=== PATIENT | male | born 1950 | race Two or more races ===

== ENCOUNTER 2021-10-17 16:48 | Inpatient (IN) | payer OTHER ==
[~2021-10-17] VITALS: Ht 188 cm; Wt 116.5 kg
[2021-10-17] MEDS ORDERED: ACETAMINOPHEN 325 MG TAB PO ONE (17:15)
[2021-10-17 19:21] LABS: Mean Corpuscular Volume 95.6 fL (80.0-100.0)
[2021-10-17 19:23] LABS: Hematocrit 45.7 % (41.0-53.0); Hemoglobin 14.8 g/dL (13.5-17.5); Mean Corpuscular Hgb Conc. 32.4 g/dL (32.0-36.0); Red Blood Cells 4.77 10^6/uL (4.5-5.90); Red Cell Distribution Width 15.6 % (11.8-14.3); White Blood Cell 2.8 10^3/uL (4.4-10.8)
[2021-10-17 19:28] LABS: Basophils % (manual) 0 (0.0-2.0); Blast Cells 0; Eosinophils % (manual) 0 (0-7); Metamyelocytes % 0; Myelocytes % 0; Promyelocytes % 0; Reactive Lymphocytes 0
[2021-10-17 19:29] LABS: Alanine Aminotransferase 40 U/L (16-61); Anion Gap 9 (5-15); Blood Alcohol < 3.0 mg/dL (0-5); Blood Urea Nitrogen 49 mg/dL (7-18); Calcium 8.6 mg/dL (8.5-10.1); Carbon Dioxide 28 mmol/L (21-32); Chloride 100 mmol/L (98-107); Glucose 81 mg/dL (74-106); Potassium 4.8 mmol/L (3.5-5.1); Sodium 137 mmol/L (136-145)
[2021-10-17 19:35] LABS: Alkaline Phosphatase 59 U/L (45-117); Aspartate Aminotransferase 54 U/L (15-37); Bilirubin, Total 0.9 mg/dL (0.2-1.0); GFR African American 42 mL/min; GFR Non-African American 34 mL/min
[2021-10-17 19:56] LABS: Band Neutrophils % (manual) 21; Lymphocytes % (manual) 13 (10.0-50.0); Monocytes % (manual) 5 (0-12)
[2021-10-17] MEDS ORDERED: SODIUM CHLORIDE 0.9% 500 ML IV ONE (20:00)
[2021-10-17] MEDS ORDERED: cefTRIAXone 1GM/50ML D5W 50 ML IV ONE (20:00)
[2021-10-17] MEDS ORDERED: VANCOMYCIN 1GM/250ML 250 ML IV ONE ×2 (20:30→20:45)
[2021-10-17 20:44] LABS: Urine Bacteria NONE SEEN /hpf (None Seen); Urine Blood 2+ /uL (Negative); Urine Hyaline Cast FEW /lpf (0 - 2); Urine Mucus FEW (None Seen); Urine Specific Gravity 1.019 (1.001-1.035); Urine WBC 1 /hpf (0 - 3)
[2021-10-18] MEDS ORDERED: NITROGLYCERIN 0.4 MG SL TAB SL PRN (06:15)
[2021-10-18] MEDS ORDERED: SODIUM CHLORIDE 0.9% 1,000 ML IV SCH (06:15)
[2021-10-18] MEDS ORDERED: SODIUM CHLORIDE 0.9% 500 ML IV ONE (06:15)
[2021-10-18] MEDS ORDERED: ACETAMINOPHEN 500 MG TAB PO PRN (06:15)
[2021-10-18] MEDS ORDERED: MORPHINE SULFATE INJECTION 2 MG/ML SYRG IV PRN (06:15)
[2021-10-18] MEDS ORDERED: ONDANSETRON HCL 4 MG/2 ML VIAL IV PRN ×2 (06:15)
[2021-10-18] MEDS ORDERED: TEMAZEPAM 15 MG CAP PO PRN (06:15)
[2021-10-18] MEDS ORDERED: ENOXAPARIN SOD 40 MG/0.4 ML SYRINGE SC SCH (10:00)
[2021-10-18] MEDS: ZINC SULFATE 220mg CAP or TAB PO SCH (10:18)
[2021-10-18] MEDS: PANTOPRAZOLE 40 MG TAB PO SCH (10:18)
[2021-10-18] MEDS: CHOLECALCIFEROL (VITD3) 2,000 UNIT CAP/TAB PO SCH (10:18)
[2021-10-18] MEDS: DexAMETHasone SOD PHOS 10MG/1ML VIAL INJ IV SCH (10:18)
[2021-10-18] MEDS: ASCORBIC ACID 1,000 MG TAB PO SCH (10:18)
[2021-10-18] MEDS: AZITHROMYCIN 500MG/ 250ML 250 ML IV SCH (10:19)
[2021-10-18] MEDS ORDERED: DILT60TA PO (14:21)
[2021-10-18] MEDS ORDERED: GABA-339 PO (14:21)
[2021-10-18] MEDS ORDERED: METH4TAB7 PO (14:21)
[2021-10-18] MEDS ORDERED: FURO40TA4 PO (14:21)
[2021-10-18] MEDS ORDERED: SITA50TA PO (14:21)
[2021-10-18] MEDS ORDERED: WARF2.5T39 PO (14:21)
[2021-10-18] MEDS ORDERED: GLIP10TA9 PO (14:21)
[2021-10-18] MEDS ORDERED: METO-158 PO (14:21)
[2021-10-18] MEDS ORDERED: METO5TAB5 PO (14:21)
[2021-10-18] MEDS ORDERED: SIMV-13 PO (14:21)
[2021-10-18 14:26] VITALS: BP 111/76
[2021-10-18 15:42] LABS: Magnesium 2.3 mg/dL (1.6-2.6)
[2021-10-18 16:21] LABS: INR 1.83 (0.9-1.15); Partial Thromboplastin Time 52.4 sec (23.6-33.0)
[2021-10-18 16:22] LABS: CRP High Sensitivity 12.2 mg/dL (< 0.3)
[2021-10-18] MEDS ORDERED: WARFARIN SODIUM 5 MG TAB PO ONE (17:00)
[2021-10-18 17:15] VITALS: BP 90/48
[2021-10-18] MEDS: glipiZIDE 5 MG TAB PO SCH (18:20)
[2021-10-18 20:00] VITALS: BP 100/53
[2021-10-18 22:00] VITALS: BP 100/53
[2021-10-18] MEDS: ALBUTEROL SULF HFA 90MCG INH 200DOSE IN PRN (22:32)
[2021-10-18] MEDS: dilTIAZem HCL 60 MG TAB PO SCH (22:52)
[2021-10-18] MEDS: METOPROLOL TARTRATE 50 MG TAB PO SCH (22:53)
[2021-10-19] MEDS: TEMAZEPAM 15 MG CAP PO PRN ×2 (03:21→23:02)
[2021-10-19 05:00] VITALS: BP 93/51
[2021-10-19] MEDS: dilTIAZem HCL 60 MG TAB PO SCH ×3 (06:00→23:01)
[2021-10-19] MEDS: glipiZIDE 5 MG TAB PO SCH ×2 (06:59→17:30)
[2021-10-19 09:00] VITALS: BP 105/59
[2021-10-19 09:05] LABS: Basophils # (auto) 0 10 ^3/uL (0-0.2); Basophils % (auto) 0.1 % (0.0-2.0); Eosinophils # (auto) 0 10 ^3/uL (0-0.8); Hematocrit 45.2 % (41.0-53.0); Lymphocytes # (auto) 0.5 10 ^3/uL (0.4-5.4); Lymphocytes % (auto) 12.7 % (10.0-50.0); Mean Corpuscular Hemoglobin 31.4 pg (28.0-32.0); Mean Corpuscular Hgb Conc. 33.3 g/dL (32.0-36.0); Mean Corpuscular Volume 94.1 fL (80.0-100.0); Monocytes # (auto) 0.4 10 ^3/uL (0-1.3); Monocytes % (auto) 9.8 % (0.0-12.0); Neutrophils # (auto) 3.3 10 ^3/uL (1.6-8.6); Neutrophils % (auto) 77.4 % (37.0-80.0); Nucleated Red Blood Cells % 0.1 %; White Blood Cell 4.3 10^3/uL (4.4-10.8)
[2021-10-19] MEDS: ALBUTEROL SULF HFA 90MCG INH 200DOSE IN PRN ×2 (09:21→19:43)
[2021-10-19 09:28] LABS: Potassium 4.8 mmol/L (3.5-5.1)
[2021-10-19 09:29] LABS: INR 2.39 (0.9-1.15); Partial Thromboplastin Time 50.3 sec (23.6-33.0)
[2021-10-19 09:35] LABS: Albumin 3.4 g/dL (3.4-5.0); BUN/Creatinine Ratio 28.5; Calcium 8.8 mg/dL (8.5-10.1)
[2021-10-19 09:43] LABS: CRP High Sensitivity 9.67 mg/dL (< 0.3)
[2021-10-19 09:50] LABS: Bilirubin, Total 0.7 mg/dL (0.2-1.0); Thyroid Stimulating Hormone 0.67 uIU/mL (0.358-3.74); Total Protein 7.3 g/dL (6.4-8.2)
[2021-10-19] MEDS: DexAMETHasone SOD PHOS 10MG/1ML VIAL INJ IV SCH (09:58)
[2021-10-19] MEDS: AZITHROMYCIN 500MG/ 250ML 250 ML IV SCH (09:58)
[2021-10-19] MEDS: PANTOPRAZOLE 40 MG TAB PO SCH (09:59)
[2021-10-19] MEDS: ASCORBIC ACID 1,000 MG TAB PO SCH (09:59)
[2021-10-19] MEDS: ZINC SULFATE 220mg CAP or TAB PO SCH (09:59)
[2021-10-19] MEDS: CHOLECALCIFEROL (VITD3) 2,000 UNIT CAP/TAB PO SCH (09:59)
[2021-10-19] MEDS: METOPROLOL TARTRATE 50 MG TAB PO SCH ×2 (10:00→23:02)
[2021-10-19 13:14] VITALS: BP 115/68
[2021-10-19] MEDS ORDERED: VANCOMYCIN PER PHARMACY 0 MG IV SCH (16:45)
[2021-10-19] MEDS ORDERED: CEFTRIAXONE SODIUM 2 GM in D5W 5% 50 ML IV ONE (16:45)
[2021-10-19] MEDS ORDERED: AMIODARONE HCL 200 MG TAB PO ONE (16:45)
[2021-10-19 17:00] VITALS: BP 117/70
[2021-10-19] MEDS ORDERED: WARFARIN SODIUM 5 MG TAB PO ONE (17:00)
[2021-10-19] MEDS: VANCOMYCIN 1GM/250ML 250 ML IV SCH (19:02)
[2021-10-19 20:00] VITALS: BP 113/71
[2021-10-19 22:00] VITALS: BP 113/71
[2021-10-20] MEDS: AMIODARONE HCL 200 MG TAB PO SCH ×2 (04:40→16:23)
[2021-10-20 05:00] VITALS: BP 108/78
[2021-10-20] MEDS: dilTIAZem HCL 60 MG TAB PO SCH ×3 (06:49→22:06)
[2021-10-20] MEDS: glipiZIDE 5 MG TAB PO SCH ×2 (06:57→18:38)
[2021-10-20 08:00] VITALS: BP 110/70
[2021-10-20 08:35] LABS: INR 2.98 (0.9-1.15)
[2021-10-20 08:37] LABS: Potassium 4.7 mmol/L (3.5-5.1)
[2021-10-20 08:42] LABS: BUN/Creatinine Ratio 31.8; Calcium 8.5 mg/dL (8.5-10.1)
[2021-10-20] MEDS: DexAMETHasone SOD PHOS 10MG/1ML VIAL INJ IV SCH (10:20)
[2021-10-20] MEDS: cefTRIAXone 1GM/50ML D5W 50 ML IV SCH (10:20)
[2021-10-20] MEDS: CHOLECALCIFEROL (VITD3) 2,000 UNIT CAP/TAB PO SCH (10:21)
[2021-10-20] MEDS: ASCORBIC ACID 1,000 MG TAB PO SCH (10:21)
[2021-10-20] MEDS: AZITHROMYCIN 500MG/ 250ML 250 ML IV SCH (10:21)
[2021-10-20] MEDS: PANTOPRAZOLE 40 MG TAB PO SCH (10:21)
[2021-10-20] MEDS: ZINC SULFATE 220mg CAP or TAB PO SCH (10:21)
[2021-10-20] MEDS: METOPROLOL TARTRATE 50 MG TAB PO SCH ×2 (10:22→22:07)
[2021-10-20 12:00] VITALS: BP 114/67
[2021-10-20] MEDS: VANCOMYCIN 1GM/250ML 250 ML IV SCH (13:23)
[2021-10-20] MEDS: ALBUTEROL SULF HFA 90MCG INH 200DOSE IN PRN ×2 (15:32→20:06)
[2021-10-20 16:00] VITALS: BP 129/66
[2021-10-20 22:00] VITALS: BP 122/81
[2021-10-20] MEDS: TEMAZEPAM 15 MG CAP PO PRN (22:06)
[2021-10-21] MEDS: AMIODARONE HCL 200 MG TAB PO SCH ×2 (04:56→16:23)
[2021-10-21 05:00] VITALS: BP 124/79
[2021-10-21] MEDS: dilTIAZem HCL 60 MG TAB PO SCH ×3 (06:36→21:56)
[2021-10-21] MEDS: VANCOMYCIN 1GM/250ML 250 ML IV SCH (06:36)
[2021-10-21] MEDS: glipiZIDE 5 MG TAB PO SCH ×2 (06:37→18:34)
[2021-10-21 08:00] VITALS: BP 115/73
[2021-10-21 08:29] LABS: INR 3.65 (0.9-1.15)
[2021-10-21] MEDS: ALBUTEROL SULF HFA 90MCG INH 200DOSE IN PRN ×2 (08:36→23:41)
[2021-10-21] MEDS: cefTRIAXone 1GM/50ML D5W 50 ML IV SCH (10:43)
[2021-10-21] MEDS: PANTOPRAZOLE 40 MG TAB PO SCH (10:44)
[2021-10-21] MEDS: ZINC SULFATE 220mg CAP or TAB PO SCH (10:44)
[2021-10-21] MEDS: DexAMETHasone SOD PHOS 10MG/1ML VIAL INJ IV SCH (10:44)
[2021-10-21] MEDS: ASCORBIC ACID 1,000 MG TAB PO SCH (10:44)
[2021-10-21] MEDS: AZITHROMYCIN 500MG/ 250ML 250 ML IV SCH (10:44)
[2021-10-21] MEDS: CHOLECALCIFEROL (VITD3) 2,000 UNIT CAP/TAB PO SCH (10:45)
[2021-10-21] MEDS: METOPROLOL TARTRATE 50 MG TAB PO SCH ×2 (10:45→21:57)
[2021-10-21 13:00] VITALS: BP 115/74
[2021-10-21 17:00] VITALS: BP 126/91
[2021-10-21 20:00] VITALS: BP 121/85
[2021-10-21] MEDS: TEMAZEPAM 15 MG CAP PO PRN (21:57)
[2021-10-21 22:00] VITALS: BP 121/85
[2021-10-22] MEDS: VANCOMYCIN 1GM/250ML 250 ML IV SCH (01:37)
[2021-10-22 05:00] VITALS: BP 127/74
[2021-10-22] MEDS: dilTIAZem HCL 60 MG TAB PO SCH ×3 (06:12→21:09)
[2021-10-22] MEDS: glipiZIDE 5 MG TAB PO SCH ×2 (06:18→18:18)
[2021-10-22 08:21] LABS: Basophils # (auto) 0 10 ^3/uL (0-0.2); Basophils % (auto) 0.1 % (0.0-2.0); Eosinophils # (auto) 0 10 ^3/uL (0-0.8); Hematocrit 43.3 % (41.0-53.0); Hemoglobin 14.5 g/dL (13.5-17.5); Lymphocytes # (auto) 0.4 10 ^3/uL (0.4-5.4); Lymphocytes % (auto) 8.2 % (10.0-50.0); Mean Corpuscular Hemoglobin 31.3 pg (28.0-32.0); Mean Corpuscular Hgb Conc. 33.5 g/dL (32.0-36.0); Mean Corpuscular Volume 93.3 fL (80.0-100.0); Monocytes # (auto) 0.6 10 ^3/uL (0-1.3); Monocytes % (auto) 10.5 % (0.0-12.0); Neutrophils # (auto) 4.4 10 ^3/uL (1.6-8.6); Neutrophils % (auto) 81.2 % (37.0-80.0); Nucleated Red Blood Cells % 0.2 %; Red Blood Cells 4.64 10^6/uL (4.5-5.90); Red Cell Distribution Width 15.3 % (11.8-14.3); White Blood Cell 5.4 10^3/uL (4.4-10.8)
[2021-10-22 08:45] LABS: INR 3.35 (0.9-1.15)
[2021-10-22 08:51] LABS: Potassium 5.3 mmol/L (3.5-5.1)
[2021-10-22 09:00] VITALS: BP 118/86
[2021-10-22 09:14] LABS: Albumin 2.9 g/dL (3.4-5.0); BUN/Creatinine Ratio 27.7; Bilirubin, Total 0.6 mg/dL (0.2-1.0); CRP High Sensitivity 3.26 mg/dL (< 0.3); Calcium 8.5 mg/dL (8.5-10.1); Magnesium 3.5 mg/dL (1.6-2.6)
[2021-10-22] MEDS: DexAMETHasone SOD PHOS 10MG/1ML VIAL INJ IV SCH (10:05)
[2021-10-22] MEDS: CHOLECALCIFEROL (VITD3) 2,000 UNIT CAP/TAB PO SCH (10:05)
[2021-10-22] MEDS: ZINC SULFATE 220mg CAP or TAB PO SCH (10:05)
[2021-10-22] MEDS: ASCORBIC ACID 1,000 MG TAB PO SCH (10:05)
[2021-10-22] MEDS: PANTOPRAZOLE 40 MG TAB PO SCH (10:06)
[2021-10-22] MEDS: AMIODARONE HCL 200 MG TAB PO SCH ×2 (10:06→21:10)
[2021-10-22] MEDS: AZITHROMYCIN 500MG/ 250ML 250 ML IV SCH (10:07)
[2021-10-22] MEDS: cefTRIAXone 1GM/50ML D5W 50 ML IV SCH (10:07)
[2021-10-22] MEDS: METOPROLOL TARTRATE 50 MG TAB PO SCH ×2 (10:09→21:10)
[2021-10-22] MEDS: ALBUTEROL SULF HFA 90MCG INH 200DOSE IN PRN ×2 (11:20→23:21)
[2021-10-22 13:00] VITALS: BP 114/73
[2021-10-22] MEDS ORDERED: REMDESIVIR PER PHARMACY 0 ML IV SCH (14:30)
[2021-10-22] MEDS ORDERED: REMDESIVIR 200 MG in NS 210ml LOADING DOSE ADULT IV ONE (15:00)
[2021-10-22 16:53] VITALS: BP 123/84
[2021-10-22 22:00] VITALS: BP 126/77
[2021-10-23 05:00] VITALS: BP 140/96
[2021-10-23] MEDS: dilTIAZem HCL 60 MG TAB PO SCH ×3 (05:31→21:26)
[2021-10-23] MEDS: glipiZIDE 5 MG TAB PO SCH ×2 (06:53→17:00)
[2021-10-23 07:55] LABS: INR 3.87 (0.9-1.15); Partial Thromboplastin Time 54.9 sec (23.6-33.0)
[2021-10-23 07:59] LABS: Potassium 4.9 mmol/L (3.5-5.1)
[2021-10-23 08:09] LABS: Albumin 2.9 g/dL (3.4-5.0); BUN/Creatinine Ratio 34.3; Bilirubin, Total 0.8 mg/dL (0.2-1.0); Calcium 8.9 mg/dL (8.5-10.1)
[2021-10-23] MEDS: AMIODARONE HCL 200 MG TAB PO SCH ×2 (08:48→21:27)
[2021-10-23] MEDS: cefTRIAXone 1GM/50ML D5W 50 ML IV SCH (08:48)
[2021-10-23] MEDS: ZINC SULFATE 220mg CAP or TAB PO SCH (08:48)
[2021-10-23] MEDS: DexAMETHasone SOD PHOS 10MG/1ML VIAL INJ IV SCH (08:48)
[2021-10-23] MEDS: METOPROLOL TARTRATE 50 MG TAB PO SCH ×2 (08:49→21:28)
[2021-10-23] MEDS: ASCORBIC ACID 1,000 MG TAB PO SCH (08:50)
[2021-10-23] MEDS: CHOLECALCIFEROL (VITD3) 2,000 UNIT CAP/TAB PO SCH (08:50)
[2021-10-23] MEDS: PANTOPRAZOLE 40 MG TAB PO SCH (08:50)
[2021-10-23 09:00] VITALS: BP 120/82
[2021-10-23 12:50] VITALS: BP 136/92
[2021-10-23 14:25] VITALS: BP 132/91
[2021-10-23] MEDS: REMDESIVIR 100mg 100 MG in SODIUM CHL 0.9% 230 ML IV SCH (15:00)
[2021-10-23] MEDS: ALBUTEROL SULF HFA 90MCG INH 200DOSE IN PRN ×2 (15:16→21:33)
[2021-10-23 16:40] VITALS: BP 132/91
[2021-10-23 22:00] VITALS: BP 138/94
[2021-10-24 05:00] VITALS: BP 127/94
[2021-10-24] MEDS: glipiZIDE 5 MG TAB PO SCH ×2 (06:30→17:48)
[2021-10-24] MEDS: dilTIAZem HCL 60 MG TAB PO SCH ×3 (06:31→21:43)
[2021-10-24] MEDS: ALBUTEROL SULF HFA 90MCG INH 200DOSE IN PRN (07:20)
[2021-10-24 08:29] VITALS: BP 130/89
[2021-10-24] MEDS: PANTOPRAZOLE 40 MG TAB PO SCH (08:46)
[2021-10-24] MEDS: ZINC SULFATE 220mg CAP or TAB PO SCH (08:47)
[2021-10-24] MEDS: CHOLECALCIFEROL (VITD3) 2,000 UNIT CAP/TAB PO SCH (08:47)
[2021-10-24] MEDS: ASCORBIC ACID 1,000 MG TAB PO SCH (08:47)
[2021-10-24] MEDS: METOPROLOL TARTRATE 50 MG TAB PO SCH ×2 (08:48→21:44)
[2021-10-24] MEDS: cefTRIAXone 1GM/50ML D5W 50 ML IV SCH (08:49)
[2021-10-24] MEDS: DexAMETHasone SOD PHOS 10MG/1ML VIAL INJ IV SCH (08:49)
[2021-10-24] MEDS: AMIODARONE HCL 200 MG TAB PO SCH ×2 (08:49→21:43)
[2021-10-24 10:02] LABS: Basophils # (auto) 0 10 ^3/uL (0-0.2); Basophils % (auto) 0.1 % (0.0-2.0); Eosinophils # (auto) 0 10 ^3/uL (0-0.8); Hematocrit 47.1 % (41.0-53.0); Hemoglobin 15.7 g/dL (13.5-17.5); Lymphocytes # (auto) 0.3 10 ^3/uL (0.4-5.4); Lymphocytes % (auto) 3.6 % (10.0-50.0); Mean Corpuscular Hgb Conc. 33.3 g/dL (32.0-36.0); Mean Corpuscular Volume 93.1 fL (80.0-100.0); Monocytes # (auto) 0.6 10 ^3/uL (0-1.3); Monocytes % (auto) 7.5 % (0.0-12.0); Neutrophils # (auto) 7.1 10 ^3/uL (1.6-8.6); Neutrophils % (auto) 88.8 % (37.0-80.0); Nucleated Red Blood Cells % 0.1 %; Red Blood Cells 5.06 10^6/uL (4.5-5.90); Red Cell Distribution Width 15.4 % (11.8-14.3)
[2021-10-24 10:18] LABS: INR 3.55 (0.9-1.15)
[2021-10-24 12:33] VITALS: BP 136/89
[2021-10-24] MEDS: REMDESIVIR 100mg 100 MG in SODIUM CHL 0.9% 230 ML IV SCH (15:45)
[2021-10-24 16:30] VITALS: BP 126/82
[2021-10-24 18:18] LABS: Urine Bacteria NONE SEEN /hpf (None Seen); Urine Blood 3+ /uL (Negative); Urine Specific Gravity 1.021 (1.001-1.035); Urine WBC 7 /hpf (0 - 3)
[2021-10-24 22:00] VITALS: BP 127/89
[2021-10-25 05:00] VITALS: BP 137/93
[2021-10-25] MEDS: ALBUTEROL SULF HFA 90MCG INH 200DOSE IN PRN (05:49)
[2021-10-25] MEDS: glipiZIDE 5 MG TAB PO SCH ×2 (05:52→17:00)
[2021-10-25] MEDS: dilTIAZem HCL 60 MG TAB PO SCH ×3 (05:53→21:42)
[2021-10-25 07:23] LABS: INR 3.46 (0.9-1.15)
[2021-10-25] MEDS: cefTRIAXone 1GM/50ML D5W 50 ML IV SCH (08:48)
[2021-10-25] MEDS: PANTOPRAZOLE 40 MG TAB PO SCH (08:48)
[2021-10-25] MEDS: CHOLECALCIFEROL (VITD3) 2,000 UNIT CAP/TAB PO SCH (08:48)
[2021-10-25] MEDS: ASCORBIC ACID 1,000 MG TAB PO SCH (08:48)
[2021-10-25] MEDS: ZINC SULFATE 220mg CAP or TAB PO SCH (08:48)
[2021-10-25] MEDS: DexAMETHasone SOD PHOS 10MG/1ML VIAL INJ IV SCH (08:48)
[2021-10-25] MEDS: AMIODARONE HCL 200 MG TAB PO SCH ×2 (08:48→21:39)
[2021-10-25] MEDS: METOPROLOL TARTRATE 50 MG TAB PO SCH ×2 (08:49→21:41)
[2021-10-25 09:00] VITALS: BP 110/68
[2021-10-25 13:00] VITALS: BP 124/80
[2021-10-25] MEDS: REMDESIVIR 100mg 100 MG in SODIUM CHL 0.9% 230 ML IV SCH (15:00)
[2021-10-25] MEDS ORDERED: FUROSEMIDE 20 MG/2 ML VIAL IV ONE (15:45)
[2021-10-25 17:00] VITALS: BP 114/69
[2021-10-25 21:28] LABS: Folate (Folic Acid) 15.87 ng/mL (5.38-24)
[2021-10-25 22:00] VITALS: BP 129/73
[2021-10-26 05:00] VITALS: BP 118/86
[2021-10-26] MEDS: dilTIAZem HCL 60 MG TAB PO SCH ×3 (05:24→21:26)
[2021-10-26] MEDS: glipiZIDE 5 MG TAB PO SCH ×2 (05:24→17:00)
[2021-10-26 09:00] VITALS: BP 121/81
[2021-10-26] MEDS: cefTRIAXone 1GM/50ML D5W 50 ML IV SCH (09:00)
[2021-10-26 09:32] LABS: Basophils # (auto) 0 10 ^3/uL (0-0.2); Basophils % (auto) 0.2 % (0.0-2.0); Eosinophils # (auto) 0 10 ^3/uL (0-0.8); Hematocrit 46.5 % (41.0-53.0); Hemoglobin 15.4 g/dL (13.5-17.5); Lymphocytes # (auto) 0.3 10 ^3/uL (0.4-5.4); Lymphocytes % (auto) 3.9 % (10.0-50.0); Mean Corpuscular Hemoglobin 30.8 pg (28.0-32.0); Mean Corpuscular Hgb Conc. 33.1 g/dL (32.0-36.0); Mean Corpuscular Volume 93.1 fL (80.0-100.0); Monocytes # (auto) 0.9 10 ^3/uL (0-1.3); Monocytes % (auto) 10.3 % (0.0-12.0); Neutrophils # (auto) 7.4 10 ^3/uL (1.6-8.6); Neutrophils % (auto) 85.6 % (37.0-80.0); Nucleated Red Blood Cells % 0.1 %; Red Cell Distribution Width 15.5 % (11.8-14.3); White Blood Cell 8.6 10^3/uL (4.4-10.8)
[2021-10-26 09:39] LABS: INR 3.97 (0.9-1.15)
[2021-10-26 09:40] LABS: Potassium 5.1 mmol/L (3.5-5.1)
[2021-10-26 09:46] LABS: BUN/Creatinine Ratio 33.5; Bilirubin, Total 1.3 mg/dL (0.2-1.0); Calcium 8.8 mg/dL (8.5-10.1); Total Protein 6.6 g/dL (6.4-8.2)
[2021-10-26] MEDS: CHOLECALCIFEROL (VITD3) 2,000 UNIT CAP/TAB PO SCH (10:00)
[2021-10-26] MEDS: ASCORBIC ACID 1,000 MG TAB PO SCH (10:00)
[2021-10-26] MEDS: ZINC SULFATE 220mg CAP or TAB PO SCH (10:00)
[2021-10-26] MEDS: DexAMETHasone SOD PHOS 10MG/1ML VIAL INJ IV SCH (10:00)
[2021-10-26] MEDS: AMIODARONE HCL 200 MG TAB PO SCH ×2 (10:00→21:25)
[2021-10-26] MEDS ORDERED: FUROSEMIDE 20 MG/2 ML VIAL IV SCH (10:00)
[2021-10-26] MEDS: METOPROLOL TARTRATE 50 MG TAB PO SCH ×2 (10:00→21:25)
[2021-10-26] MEDS: PANTOPRAZOLE 40 MG TAB PO SCH (10:00)
[2021-10-26 13:00] VITALS: BP 118/88
[2021-10-26] MEDS: REMDESIVIR 100mg 100 MG in SODIUM CHL 0.9% 230 ML IV SCH (14:54)
[2021-10-26 16:30] VITALS: BP 127/90
[2021-10-26] MEDS: ALBUTEROL SULF HFA 90MCG INH 200DOSE IN PRN (21:40)
[2021-10-26 22:00] VITALS: BP 132/94
[2021-10-27 05:00] VITALS: BP 129/85
[2021-10-27] MEDS: ALBUTEROL SULF HFA 90MCG INH 200DOSE IN PRN ×2 (05:49→21:03)
[2021-10-27] MEDS: glipiZIDE 5 MG TAB PO SCH ×2 (05:50→17:00)
[2021-10-27] MEDS: dilTIAZem HCL 60 MG TAB PO SCH ×3 (05:50→22:36)
[2021-10-27 07:15] VITALS: BP 124/88
[2021-10-27 07:22] LABS: INR 3.97 (0.9-1.15)
[2021-10-27 07:24] LABS: Basophils # (auto) 0 10 ^3/uL (0-0.2); Basophils % (auto) 0.2 % (0.0-2.0); Eosinophils # (auto) 0 10 ^3/uL (0-0.8); Hematocrit 49.5 % (41.0-53.0); Hemoglobin 16.1 g/dL (13.5-17.5); Lymphocytes # (auto) 0.5 10 ^3/uL (0.4-5.4); Mean Corpuscular Hemoglobin 30.4 pg (28.0-32.0); Mean Corpuscular Hgb Conc. 32.5 g/dL (32.0-36.0); Mean Corpuscular Volume 93.8 fL (80.0-100.0); Monocytes # (auto) 0.7 10 ^3/uL (0-1.3); Monocytes % (auto) 6.7 % (0.0-12.0); Neutrophils # (auto) 9.2 10 ^3/uL (1.6-8.6); Neutrophils % (auto) 88.1 % (37.0-80.0); Nucleated Red Blood Cells % 0.1 %; Red Blood Cells 5.28 10^6/uL (4.5-5.90); Red Cell Distribution Width 15.3 % (11.8-14.3); White Blood Cell 10.4 10^3/uL (4.4-10.8)
[2021-10-27] MEDS: cefTRIAXone 1GM/50ML D5W 50 ML IV SCH (09:30)
[2021-10-27] MEDS: DexAMETHasone SOD PHOS 10MG/1ML VIAL INJ IV SCH (09:30)
[2021-10-27] MEDS: ZINC SULFATE 220mg CAP or TAB PO SCH (09:30)
[2021-10-27] MEDS: CHOLECALCIFEROL (VITD3) 2,000 UNIT CAP/TAB PO SCH (09:31)
[2021-10-27] MEDS: ASCORBIC ACID 1,000 MG TAB PO SCH (09:31)
[2021-10-27] MEDS: METOPROLOL TARTRATE 50 MG TAB PO SCH ×2 (09:31→22:37)
[2021-10-27] MEDS: AMIODARONE HCL 200 MG TAB PO SCH ×2 (09:31→22:36)
[2021-10-27] MEDS: PANTOPRAZOLE 40 MG TAB PO SCH (09:31)
[2021-10-27 12:30] VITALS: BP 127/65
[2021-10-27] MEDS ORDERED: DILT90TA PO (12:57)
[2021-10-27 16:10] VITALS: BP 127/82
[2021-10-27 22:00] VITALS: BP 127/81
[2021-10-28 05:00] VITALS: BP 102/78
[2021-10-28] MEDS: dilTIAZem HCL 60 MG TAB PO SCH ×3 (05:59→22:00)
[2021-10-28] MEDS: glipiZIDE 5 MG TAB PO SCH ×2 (06:01→17:00)
[2021-10-28 06:55] LABS: Basophils # (auto) 0.2 10 ^3/uL (0-0.2); Basophils % (auto) 1.3 % (0.0-2.0); Eosinophils # (auto) 0 10 ^3/uL (0-0.8); Hematocrit 48.5 % (41.0-53.0); Hemoglobin 15.6 g/dL (13.5-17.5); Lymphocytes # (auto) 0.5 10 ^3/uL (0.4-5.4); Lymphocytes % (auto) 3.3 % (10.0-50.0); Mean Corpuscular Hemoglobin 30.3 pg (28.0-32.0); Mean Corpuscular Hgb Conc. 32.1 g/dL (32.0-36.0); Mean Corpuscular Volume 94.3 fL (80.0-100.0); Monocytes # (auto) 0.9 10 ^3/uL (0-1.3); Monocytes % (auto) 6.5 % (0.0-12.0); Neutrophils # (auto) 12.2 10 ^3/uL (1.6-8.6); Neutrophils % (auto) 88.9 % (37.0-80.0); Nucleated Red Blood Cells % 0.1 %; Red Blood Cells 5.14 10^6/uL (4.5-5.90); Red Cell Distribution Width 15.4 % (11.8-14.3); White Blood Cell 13.7 10^3/uL (4.4-10.8)
[2021-10-28 07:18] LABS: Calcium 8.7 mg/dL (8.5-10.1); Potassium 4.8 mmol/L (3.5-5.1)
[2021-10-28 07:20] LABS: BUN/Creatinine Ratio 36.1
[2021-10-28 08:31] LABS: INR 4.44 (0.9-1.15)
[2021-10-28 09:00] VITALS: BP 121/86
[2021-10-28] MEDS ORDERED: DIGOXIN (250MCG/ML) 2 ML AMPULE IV ONE (09:15)
[2021-10-28] MEDS: cefTRIAXone 1GM/50ML D5W 50 ML IV SCH (11:23)
[2021-10-28] MEDS: DexAMETHasone SOD PHOS 10MG/1ML VIAL INJ IV SCH (11:24)
[2021-10-28] MEDS: ZINC SULFATE 220mg CAP or TAB PO SCH (11:25)
[2021-10-28] MEDS: AMIODARONE HCL 200 MG TAB PO SCH ×2 (11:25→22:00)
[2021-10-28] MEDS: ASCORBIC ACID 1,000 MG TAB PO SCH (11:26)
[2021-10-28] MEDS: METOPROLOL TARTRATE 50 MG TAB PO SCH ×2 (11:26→22:00)
[2021-10-28] MEDS: PANTOPRAZOLE 40 MG TAB PO SCH (11:26)
[2021-10-28] MEDS: CHOLECALCIFEROL (VITD3) 2,000 UNIT CAP/TAB PO SCH (11:27)
[2021-10-28 12:59] VITALS: BP 136/82
[2021-10-28 22:00] VITALS: BP 119/74
== END 2021-10-28 23:45 | DRG 177 ==
LOC: ER 16:48 → EDBD 16:48 → TELE 10-18 06:12 → TELE-WESTW 10-18 11:28
PROVIDERS: ADMIT Nurse Practitioner; ATTEND Internal Medicine
PROC: 5A0955A Assistance with Respiratory Ventilation, Greater than 96 Consecutive Hours, High Flow/Velocity Cannula (ICD-10-PCS; 2021-10-18)
PROC: XW033E5 Introduction of Remdesivir Anti-infective into Peripheral Vein, Percutaneous Approach, New Technology Group 5 (ICD-10-PCS; principal; 2021-10-23)
DX: U07.1 COVID-19 (principal); J96.20 Acute and chronic respiratory failure, unspecified whether with hypoxia or hypercapnia; J12.82 Pneumonia due to coronavirus disease 2019; G93.41 Metabolic encephalopathy; I50.21 Acute systolic (congestive) heart failure; N17.9 Acute kidney failure, unspecified; G93.1 Anoxic brain damage, not elsewhere classified; J44.0 Chronic obstructive pulmonary disease with (acute) lower respiratory infection; D68.59 Other primary thrombophilia; R78.81 Bacteremia; G89.4 Chronic pain syndrome; I11.0 Hypertensive heart disease with heart failure; I48.91 Unspecified atrial fibrillation; I89.0 Lymphedema, not elsewhere classified; M54.50 Low back pain, unspecified; R19.7 Diarrhea, unspecified; I87.2 Venous insufficiency (chronic) (peripheral); E11.9 Type 2 diabetes mellitus without complications; E66.9 Obesity, unspecified; Z68.35 Body mass index [BMI] 35.0-35.9, adult; Z88.0 Allergy status to penicillin; Z23 Encounter for immunization
CPT/HCPCS: 36415; 70450; 71045; 80048; 80053; 80202; 80320; 81001; 82306; 82607; 82728; 82746; 82962; 83036; 83605; 83615; 83735; 84132; 84443; 84484; 85007; 85025; 85027; 85379; 85610; 85730; 86141; 87040; 87045; 87077; 87086; 87186; 87426; 87427; 87493; 93005; 93306; 94640; 95819; 96365; 96366; 96367; 96372; 96375; 97110; 97116; 97530; G0378; J0696; J1100; J7060